=== PATIENT | female | born 1945 | race Caucasian/White ===

== ENCOUNTER 2016-03-13 13:03 | Inpatient (IN) | payer OTHER ==
[~2016-03-13] VITALS: Ht 157.5 cm; Wt 49.0 kg
[~2016-03-13 13:03] MED LIST: ASPIR 8181 M1 PO; GLUCOPHAGE1000 MG PO; LISINOPRIL10 MG PO; LOPRESSOR25 MG PO; VITAMIN D PO
[2016-03-13 13:13] VITALS: BP 137/91
[2016-03-13] MEDS ORDERED: AMOXICILLIN200 MG PO (13:20)
[2016-03-13] MEDS ORDERED: PROTONIX20 MG PO (13:20)
[2016-03-13] MEDS ORDERED: TYLENOL325 M1 PO (13:20)
--- NOTE | 2016-03-13 14:20 | NUR ---
70/F BIB C/O BODYACHES, ABD PAIN, VOMITING, TACTILE FEVER X5DAYS. TYLENOL TAKEN AT 0700. DENIES DIARRHEA; SKIN IS PINK/WARM/DRY; AAOX4 WITH EVEN AND STEADY GAIT; LUNGS CLEAR BL; HR EVEN AND REGULAR; PT DENIES ANY FEVER, CP, SOB, OR COUGH AT THIS TIME; PATIENT STATES PAIN OF 5/10 AT THIS TIME; VSS; PATIENT POSITIONED FOR COMFORT; HOB ELEVATED; BEDRAILS UP X2; BED DOWN. ER MD MADE AWARE OF PT STATUS.
--- NOTE | 2016-03-13 14:28 | NUR ---
AAP PT BEING ASSESS BY DR EMANUEL AT BEDSIDE
[2016-03-13] MEDS ORDERED: NACL 0.9% 1,000 ML IV SCH (14:39)
[2016-03-13] MEDS ORDERED: FAMOTIDINE 20 MG/2 ML VIAL IVP ONE (14:40)
[2016-03-13] MEDS ORDERED: ONDANSETRON 4 MG/2 ML VIAL IVP ONE (14:40)
--- NOTE | 2016-03-13 16:05 | NUR ---
AAO PT AMBULATE TO THE RESTROOM FOR URINE SAMPLE ACCOMPANIED BY
[2016-03-13] MEDS ORDERED: HYDROmorphone 1 MG/ML AMP IVP ONE (16:15)
--- NOTE | 2016-03-13 17:54 | NUR ---
AAO PT TAKEN TO CT BY VINCE TOLEDO VIA PATRICIA
--- NOTE | 2016-03-13 18:25 | NUR ---
Patient will be admitted to care of DR SHAW. Admited to [facility]. Will go to room 124B. Belongings list completed. Report to ROSA M LU.
[2016-03-13 19:57] VITALS: BP 146/90
--- NOTE | 2016-03-13 20:00 | NUR ---
RECEIVED REPORT FROM ROSA M LU. PATIENT WAS ADMITTED TO MED/SURG VIA WHEELCHAIR FROM ER AT 1830 PM WITH DX: PANCREATITIS. INITIAL ASSESSMENT, BODY CHECK AND ADMISSION INTERVENTION DONE. PATIENT AAO X 4, ABLE TO FOLLOW COMMAND AND MAKE NEEDS KNOWN AND AMBULATORY BY SELF WITH STEADY GAIT. NO S/S OF DISTRESS OR SOB NOTED UPON ADMISSION. SKIN WARM/DRY TO TOUCH WITH NORMAL COLOR AND INTACT. PATIENT DENIED OF ANY PAIN/DISCOMFORT AT THIS TIME. INSTRUCTED PATIENT TO UNIT/ENVIRONMENT. ALSO, DISCUSSED PLAN OF CARE, PAIN MANAGEMENT AND MEDICATION REGIMEN WITH PATIENT AND PATIENT VERBALIZED UNDERSTANDING. PLACED PATIENT ON SAFETY PRECAUTIONS AND NPO. WILL CONTINUE TO MONITOR AND CALL LIGHT LEFT WITHIN REACH.
--- NOTE | 2016-03-13 21:02 | NUR ---
NOTIFIED DR. SHAW REGARDING A NEW ADMISSION. AWAITING FOR ORDERS.
[2016-03-13] MEDS ORDERED: ONDANSETRON 4 MG/2 ML VIAL IVP PRN (21:05)
[2016-03-13] MEDS ORDERED: MORPHINE SULFATE 4 MG/ML SYR IVP PRN (21:05)
[2016-03-13] MEDS ORDERED: DEXTROSE 50% 50 ML SYR IVP PRN (21:15)
--- NOTE | 2016-03-13 21:40 | NUR ---
CALLED PHARMACIST REGARDING NEW MEDICATIONS. AWAITING TO VERIFY.
[2016-03-13] MEDS: DEXT 5% /NACL 0.9% 1,000 ML IV SCH (22:39)
[2016-03-13] MEDS: LEVOFLOXACIN 500 MG/D5W PREMIX 100 ML IV SCH (22:39)
--- NOTE | 2016-03-13 22:50 | NUR ---
ADMINISTERED LEVAQUIN AND IVF MD'S ORDERED WITH EDUCATION GIVEN. PATIENT REMAINED IN STABLE CONDITION AND NO ANY COMPLAINT MADE. KEPT PATIENT IN COMFORTABLE POSITION/WARM AND WILL CONTINUE TO MONITOR.
[2016-03-14] VITALS: BP 136/83
--- NOTE | 2016-03-14 00:38 | NUR ---
NO ADVERSE REACTION OF ABX MEDICATION NOTED. V/S REMAINED WNL AND NO ANY C/O PAIN/DISCOMFORT MADE AT THIS TIME. PATIENT STATED THAT SHE WAS HUNGRY. EXPLAINED THE REASONS OF NPO STATUS AND PATIENT VERBALIZED UNDERSTANDING. WILL CONTINUE TO MONITOR.
--- NOTE | 2016-03-14 04:08 | NUR ---
PATIENT SLEEPING QUIETLY IN BED WITH EVEN AND UNLABORED RESPIRATORY RATE. NO CHANGE IN CONDITION NOTED. WILL CONTINUE TO MONITOR.
[2016-03-14] MEDS: DEXT 5% /NACL 0.9% 1,000 ML IV SCH ×3 (05:37→23:45)
[2016-03-14] MEDS: BLOOD GLUCOSE MONITORING 1 DEV DEV FS SCH ×4 (05:48→21:33)
[2016-03-14] MEDS: INSULIN ASPART SLIDING SCALE 100 UNITS/ML VIAL SUBQ PRN ×2 (05:50→17:46)
--- NOTE | 2016-03-14 06:58 | NUR ---
PATIENT RESTED WELL THROUGHOUT THE SHIFT AND REMAINED IN STABLE CONDITION WITHOUT APPARENT DISTRESS NOTED. ENDORSED PLAN OF CARE TO ROSA M WRIGHT, AT BEDSIDE.
--- NOTE | 2016-03-14 06:59 | NUR ---
RECEIVED REPORT FROM ROSA M ROSEN. PT IS SLEEPING BUT EASILY AWAKEN, AAO X4, SKIN INTACT IV ON RIGHT FA PATENT AND INTACT INFUSING FLUID WELL, RIGHT FA 22G FLUSHED PATENT AND INTACT ON SL. INITIAL ASSESSMENT DONE, NO S/S OF RESPIRATORY DISTRESS OR DISCOMFORT NOTED, SAFETY/FALL PRECAUTION ENFORCED, CALL LIGHT WITHIN REACH, WILL CONTINUE TO MONITOR.
[2016-03-14 08:00] VITALS: BP 135/76
[2016-03-14] MEDS: PANTOPRAZOLE 40 MG INJ VIAL IVP SCH (08:23)
[2016-03-14] MEDS: ENOXAPARIN 30 MG/0.3 ML SYR SUBQ SCH (08:32)
[2016-03-14] MEDS: ASPIRIN 81 MG TAB.CHEW PO SCH (08:32)
[2016-03-14] MEDS: METOPROLOL 25 MG TAB PO SCH (08:32)
--- NOTE | 2016-03-14 08:33 | NUR ---
DUE MEDS GIVEN, PT TOLERATED WELL, CALL LIGHT WITHIN REACH, WILL CONTINUE TO MONITOR.
--- NOTE | 2016-03-14 09:23 | NUR ---
PATIENT HAS BEEN SCREENED AND CATEGORIZED MODERATE NUTRITION RISK. PATIENT WILL BE SEEN WITHIN 3-5 DAYS OF ADMISSION. 03/16/16 - 03/18/16 KRISTY OCONNELL; CRISTIAN, RD
--- NOTE | 2016-03-14 11:14 | NUR ---
DR. Whit DUMAS VISITED THE PT.
--- NOTE | 2016-03-14 11:49 | NUR ---
BLOOD SUGAR CHECKED, 169, INSULIN COVERAGE NOT GIVEN, PT WILL REMAIN NPO FOR HIDA SCAN. ALL NEEDS MET AT THIS TIME, NO S/S OF RESPIRATORY DISTRESS OR DISCOMFORT NOTED, CALL LIGHT WITHIN REACH, AT BEDSIDE, WILL CONTINUE TO MONITOR.
[2016-03-14] MEDS: METOCLOPRAMIDE 10 MG/2 ML INJ VIAL IVP SCH ×2 (12:33→16:51)
--- NOTE | 2016-03-14 14:00 | NUR ---
PT IS SLEEPING AT THIS TIME, NO S/S OF RESPIRATORY DISTRESS OR DISCOMFORT NOTED, CALL LIGHT WITHIN REACH, AT BEDSIDE, WILL CONTINUE TO MONITOR.
[2016-03-14 16:00] VITALS: BP 131/71
--- NOTE | 2016-03-14 17:48 | NUR ---
DINNER SERVED, PT HAS GOOD APPETITE, ALL NEEDS MET AT THIS TIME, NO S/S OF RESPIRATORY DISTRESS OR DISCOMFORT NOTED, CALL LIGHT WITHIN REACH, AT BEDSIDE, WILL CONTINUE TO MONITOR.
--- NOTE | 2016-03-14 19:14 | NUR ---
RECEIVED PT FROM ANANYA MEDEROS IN STABLE CONDITION, FOR CONTINUITY OF CARE.
--- NOTE | 2016-03-14 19:15 | NUR ---
ENDORSED REPORT TO ROSA M HAMILTON FOR CONTINUITY OF CARE. PT IS STABLE AT THIS TIME.
--- NOTE | 2016-03-14 20:00 | NUR ---
SHIFT ASSESSMENT DONE. PT A/O X3, NO DISTRESS. DISCUSSED PLAN OF CARE W/ PT, VERBALIZED UNDERSTANDING. PT VITAL SIGNS ARE STABLE, NOTED ON ROOM AIR W/ OXYGEN SATURATION AT 97%, HR 83, BP 155/94, TEMP 99.3F, RR 18 AND DENIES ANY PAIN OR DISCOMFORT. PT DENIES CHEST PAIN, SOB, NAUSEA, AND VOMITING. SKIN IS INTACT, NOTED PT TO HAVE IVF RUNNING WITH IV ACCESS #20G TO RT FA, PATENT AND INTACT. ANOTHER IV ACCESS TO RT FA #22G, SALINE LOCKED, PATENT AND INTACT. SAFETY PRECAUTIONS IMPLEMENTED. CALL LIGHT WITHIN REACH. WILL CONTINUE TO MONITOR PT.
[2016-03-14] MEDS: LEVOFLOXACIN 500 MG/D5W PREMIX 100 ML IV SCH (21:31)
--- NOTE | 2016-03-14 21:33 | NUR ---
PT BLOOD GLUCOSE NOTED AT 162, PT REFUSED INSULIN COVERAGE, ALSO PT IS NPO. REMAINS IN STABLE CONDITION.
--- NOTE | 2016-03-14 23:45 | NUR ---
VITAL SIGNS REMAINS STABLE. NO ACUTE DISTRESS NOTED. WILL CONTINUE TO MONITOR PT.
[2016-03-15] VITALS: BP 149/88
--- NOTE | 2016-03-15 02:22 | NUR ---
PT STABLE, NO ACUTE DISTRESS. WILL CONTINUE TO MONITOR.
[2016-03-15] MEDS: DEXT 5% /NACL 0.9% 1,000 ML IV SCH (03:05)
--- NOTE | 2016-03-15 04:04 | NUR ---
PT RESTING COMFORTABLY, IV ACCESS NOTED PATENT. DENIES PAIN. WILL CONTINUE TO MONITOR.
[2016-03-15] MEDS: INSULIN ASPART SLIDING SCALE 100 UNITS/ML VIAL SUBQ PRN ×2 (05:38→17:42)
[2016-03-15] MEDS: BLOOD GLUCOSE MONITORING 1 DEV DEV FS SCH ×3 (05:39→17:01)
--- NOTE | 2016-03-15 05:41 | NUR ---
PT BLOOD GLUCOSE 196, PT STABLE, ADMINISTERED INSULIN PER MD SLIDING SCALE.
--- NOTE | 2016-03-15 07:05 | NUR ---
ENDORSED PT TO ANANYA RN IN STABLE CONDITION, FOR CONTINUITY OF CARE.
--- NOTE | 2016-03-15 07:06 | NUR ---
RECEIVED REPORT FROM ROSA M HAMILTON. PT IS SLEEPING BUT EASILY AWAKEN, AAO X4, SKIN INTACT, IV ON RIGHT FA PATENT AND INTACT INFUSING FLUID WELL, AND ON RIGHT FA FLUSHED PATENT AND INTACT ON SL, INITIAL ASSESSMENT DONE, NO S/S OF RESPIRATORY DISTRESS OR DISCOMFORT NOTED, DISCUSSED PLAN OF CARE, PT VERBALIZED UNDERSTANDING, SAFETY/FALL PRECAUTION ENFORCED, CALL LIGHT WITHIN REACH, WILL CONTINUE TO MONITOR.
[2016-03-15 08:00] VITALS: BP 155/91
[2016-03-15] MEDS: PANTOPRAZOLE 40 MG INJ VIAL IVP SCH (08:35)
[2016-03-15] MEDS: METOCLOPRAMIDE 10 MG/2 ML INJ VIAL IVP SCH (08:36)
--- NOTE | 2016-03-15 08:40 | NUR ---
DUE MEDS GIVEN, PT TOLERATED WELL, CALL LIGHT WITHIN REACH, WILL CONTINUE TO MONITOR.
[2016-03-15] MEDS: ENOXAPARIN 30 MG/0.3 ML SYR SUBQ SCH (08:44)
[2016-03-15] MEDS: ASPIRIN 81 MG TAB.CHEW PO SCH (08:46)
[2016-03-15] MEDS: METOPROLOL 25 MG TAB PO SCH (08:46)
--- NOTE | 2016-03-15 09:51 | NUR ---
SPOKE TO DR. FARIA, HE STATED THAT AFTER PT'S EGD, IF IT IS OKAY WITH DR. Whit DUMAS FOR PT TO BE DISCHARGE, PT CAN BE DISCHARGED.
--- NOTE | 2016-03-15 10:36 | NUR ---
PER [facility]SPORTATION MANAGER CATIE, REVIEWS SHOULD BE SENT TO BOTH [facility] FAX# [phone] AND [facility] FAX# [phone]. FAXED REVIEW TO [facility] FAX#[phone] PH# [phone] AND [facility] FAX#[phone] PH#JOSE [phone]
--- NOTE | 2016-03-15 12:31 | NUR ---
PT LEFT FOR EGD PROCEDURE, PT STABLE UPON LEAVING.
[2016-03-15] MEDS ORDERED: MIDAZOLAM 2 MG/2 ML VIAL ONE (12:43)
[2016-03-15] MEDS ORDERED: fentaNYL 0.05 MG/ML VIAL ONE (12:43)
--- NOTE | 2016-03-15 13:24 | NUR ---
PT IS BACK FROM EGD PROCEDURE, RECEIVED REPORT FROM ROSA M PETERS FROM OR. VITALS STABLE, MOVED PT TO ROOM 120B, ALL NEEDS MET AT THIS TIME, CALL LIGHT WITHIN REACH, WILL CONTINUE TO MONITOR.
[2016-03-15] MEDS ORDERED: ERTAPENEM SODIUM 1,000 MG in NACL 0.9% 50 ML IV SCH (14:00)
--- NOTE | 2016-03-15 14:27 | NUR ---
FAXED ORDER FOR FOR IV ANTIBIOTIC ERTAPENEM 1G DAILY FOR 10 DAYS TO [facility] FAX# [phone] PH# JOSE [phone]
--- NOTE | 2016-03-15 15:36 | NUR ---
PT IS RESTING COMFORTABLY ON BED TALKING TO AT BEDSIDE, ALL NEEDS MET AT THIS TIME, NO S/S OF RESPIRATORY DISTRESS OR DISCOMFORT NOTED, CALL LIGHT WITHIN REACH, WILL CONTINUE TO MONITOR.
[2016-03-15 16:00] VITALS: BP 118/73
--- NOTE | 2016-03-15 16:25 | NUR ---
SPOKE WITH ALLY BRITO AT 1445 PH# [phone] AND SHE SAID THAT SHE WILL SET UP THE PATIENT'S HOME HEALTH FOR IV ANTIBIOTIC AND WILL FIND OUT IF THE HH WILL NEED A PICC LINE. CALLED BACK ALLY BRITO AT 1545 AND 1615 TO FOLLOW UP ON THE HH AND LEFT HER MESSAGES. NO CALL BACK.
[2016-03-15] MEDS ORDERED: SUCRALFATE 1 GM TAB PO SCH (17:00)
--- NOTE | 2016-03-15 17:54 | NUR ---
SPOKE TO DR. Whit DUMAS REGARDING PT IS OKAY TO BE DISCHARGED, DR. DUMAS STATED THAT PT CAN BE DISCHARGE. WILL CARRY OUT NEW ORDER.
[2016-03-15] MEDS ORDERED: LEVAQUIN500 MG PO (18:03)
--- NOTE | 2016-03-15 18:40 | NUR ---
DISCHARGE INSTRUCTIONS AND PRESCRIPTION GIVEN, PT VERBALIZED UNDERSTANDING, REMOVED ID WRISTBAND, IV IN PLACE FOR HOME HEALTH IV ABX, NOTIFIED ADMITTING, WHEELED PT OUT OF THE UNIT VIA WHEELCHAIR ACCOMPANIED BY , PT STABLE UPON DISCHARGE.
--- NOTE | 2016-03-16 09:09 | NUR ---
SPOKE WITH ALLY HARO OF [facility] PH# [phone] AND SHE SAID THAT THE PATIENT HAS BEEN SET UP WITH HOME HEALTH FOR IV ANTIBIOTIC WITH [facility] PH# [phone] TO START TODAY
== END 2016-03-15 18:40 | disposition home health service (06) | DRG 439 ==
LOC: MED 13:03 → MTU 17:51
PROVIDERS: ADMIT Internal Medicine Pulmonary Disease; ATTEND Internal Medicine Pulmonary Disease
PROC: 0DB68ZX Excision of Stomach, Via Natural or Artificial Opening Endoscopic, Diagnostic (ICD-10-PCS; principal; 2016-03-15 17:30)
DX: K85.90 Acute pancreatitis without necrosis or infection, unspecified (principal); N13.30 Unspecified hydronephrosis; N39.0 Urinary tract infection, site not specified; E44.0 Moderate protein-calorie malnutrition; Z68.1 Body mass index [BMI] 19.9 or less, adult; K21.9 Gastro-esophageal reflux disease without esophagitis; I25.10 Atherosclerotic heart disease of native coronary artery without angina pectoris; K27.7 Chronic peptic ulcer, site unspecified, without hemorrhage or perforation; I10 Essential (primary) hypertension; N81.4 Uterovaginal prolapse, unspecified; K31.84 Gastroparesis; E11.43 Type 2 diabetes mellitus with diabetic autonomic (poly)neuropathy; Z95.1 Presence of aortocoronary bypass graft; Z79.82 Long term (current) use of aspirin; Z79.899 Other long term (current) drug therapy

== ENCOUNTER 2017-05-15 00:40 | Observation (INO) | payer OTHER ==
[~2017-05-15] VITALS: Ht 157.5 cm; Wt 52.6 kg
[~2017-05-15 00:40] MED LIST changes: +ACET-2619 PO; +ASPI81EC98 PO; -ASPIR 8181 M1 PO; -GLUCOPHAGE1000 MG PO; +LEVO500T6 PO; -LISINOPRIL10 MG PO; -LOPRESSOR25 MG PO; +METF1000 PO; +METO25TA PO; +PANT20EC PO; -VITAMIN D PO; +[UNRECOGNIZED DRUG - CODE] PO
[2017-05-15 00:49] VITALS: BP 147/85
--- NOTE | 2017-05-15 01:20 | NUR ---
TO ER BED 10
--- NOTE | 2017-05-15 01:22 | NUR ---
PATIENT IS A 71 Y/O FEMALE WHO PRESENTS TO THE ED C/O ABD PAIN. PT STATES, "IT WAS STARTING TO HURT ABOUT 1 DAY AGO." PT REPORTS 9/10 SHARP UPPER ABD PAIN THAT DOES NOT RADIATE. PT DENIES CP, SOB, REPORTS NAUSEA DENIES VOMITING/DIARRHEA. PT AAOX4, RR EVEN/UNLABORED. PT REPOSITIONED FOR COMFORT, BED IN LOWEST POSITION. ER MD DR. BAUTISTA NOTIFIED. WILL CONTINUE TO MONITOR. Addendum: 05/15/17 at 0213 by MEDDCV PATIENT IS A 71 Y/O FEMALE WHO PRESENTS TO THE ED C/O ABD PAIN. PT STATES, "IT WAS STARTING TO HURT ABOUT 1 DAY AGO." PT REPORTS 9/10 SHARP UPPER ABD PAIN THAT DOES NOT RADIATE. PT DENIES CP, SOB, REPORTS NAUSEA/VOMITING DENIES DIARRHEA. PT AAOX4, RR EVEN/UNLABORED. PT REPOSITIONED FOR COMFORT, BED IN LOWEST POSITION. ER MD DR. BAUTISTA NOTIFIED. WILL CONTINUE TO MONITOR.
[2017-05-15 02:25] LABS: BASOPHILS # (AUTO) 0.1 K/uL (0.00-0.22); BASOPHILS % (AUTO) 1.7 % (0.0-2.0); EOSINOPHILS # (AUTO) 0.1 K/uL (0-0.4); EOSINOPHILS % (AUTO) 0.8 % (0.0-4.0); HEMATOCRIT 42.7 % (36-48); HEMOGLOBIN 14.2 g/dL (12.0-16.0); LYMPHOCYTES # (AUTO) 1.6 K/uL (2.5-16.5); LYMPHOCYTES % (AUTO) 23.5 % (20.5-51.1); MEAN CORPUSCULAR HEMOGLOBIN 28 pg (27-31); MEAN CORPUSCULAR HGB CONC 33 g/dL (33-37); MEAN CORPUSCULAR VOLUME 83 fL (80-94); MONOCYTES # (AUTO) 0.6 K/uL (0.8-1.0); MONOCYTES % (AUTO) 9.5 % (1.7-9.3); NEUTROPHILS # (AUTO) 4.4 K/uL (1.8-7.7); NEUTROPHILS % (AUTO) 64.5 % (42.2-75.2); PLATELET COUNT (AUTO) 231 K/uL (140-450); RED BLOOD CELL COUNT(AUTO) 5.12 MIL/uL (4.20-5.40); RED CELL DISTRIBUTION WIDTH 13.8 % (11.6-13.7); WHITE BLOOD COUNT (AUTO) 6.8 K/uL (4.8-10.8)
[2017-05-15] MEDS ORDERED: NACL 0.9% 1,000 ML IV ONE ×2 (02:35→03:15)
[2017-05-15] MEDS ORDERED: ONDANSETRON 4 MG/2 ML VIAL IVP ONE (02:35)
[2017-05-15 02:47] LABS: ANION GAP 13.9 (8-16); CARBON DIOXIDE 29.2 mmol/L (21-32); CHLORIDE 100 mmol/L (98-107); GLUCOSE 183 mg/dL (74-106); POTASSIUM 4.1 mmol/L (3.5-5.1); SODIUM SERUM 139 mmol/L (136-145); UREA NITROGEN, BLOOD 26 mg/dL (7-18)
[2017-05-15 03:01] LABS: ALBUMIN 3.7 g/dL (3.4-5.0); AMYLASE 102 U/L (25-115); ASPARTATE AMINOTRANSFERASE 12 U/L (15-37); LIPASE 775 U/L (73-393); TOTAL BILIRUBIN 0.4 mg/dL (0.0-1.0)
[2017-05-15] MEDS ORDERED: MORPHINE SULFATE 4 MG/ML SYR IVP ONE (03:30)
--- NOTE | 2017-05-15 03:30 | NUR ---
CALLED COCKTAIL WAITRESS FOR CT SCAN, NO ANSWER
--- NOTE | 2017-05-15 03:52 | NUR ---
CALLED CURTAIN FELLER BLINDSTITCH FOR CT, SPOKE WITH LINETTE, SHE WILL PROP MAKING SUPERVISOR PATIENT FOR CT
[2017-05-15 04:28] LABS: APPEARANCE,URINE SL CLOUDY (CLEAR); BILIRUBIN,URINE NEGATIVE (NEGATIVE); BLOOD, URINE 1+ (NEGATIVE); COLOR,URINE YELLOW (YELLOW); LEUKOCYTE ESTERASE ,URINE TRACE (NEGATIVE); NITRITE, URINE NEGATIVE (NEGATIVE); PH,URINE 6.5 (5.0-9.0); UGLUCOSE TRACE (NEGATIVE)
--- NOTE | 2017-05-15 04:30 | NUR ---
PATIENT RESTING AT THIS TIME. NO SIGNS OF DISTRESS.
[2017-05-15 04:39] LABS: RBC,URINE 0-5 (RARE) /HPF (0-5); WBC,URINE 0-5 (RARE) /HPF (0-5)
--- NOTE | 2017-05-15 05:30 | NUR ---
PATIENT RESTING AT THIS TIME. NO SIGNS OF DISTRESS.
[2017-05-15] MEDS ORDERED: ACET-2619 PO (06:04)
[2017-05-15] MEDS ORDERED: GLIP5TAB4 PO (06:04)
--- NOTE | 2017-05-15 06:05 | NUR ---
Patient will be admitted to care of DR. CANTU. Admitted to M/S. Will go to room 113. Belongings list completed. Report to STAR MEDEROS.
--- NOTE | 2017-05-15 06:14 | NUR ---
RECEIVED FROM ER PER WHEELCHAIR ACCOMPANIED BY SPOUSE. AWAKE AND ALERT. NO SOB. DENIES PAIN AT THIS TIME. CALL LIGHT WITH IN REACH. ORIENTED TO ROOM AND, RAPID RESPONSE USE . IVF SITE TO RAC#20. SKIN INTACT AND DX. OF PANCREATITIS. NO EDEMA NOTED. CTAB.
[2017-05-15 06:27] VITALS: BP 125/62
--- NOTE | 2017-05-15 07:15 | NUR ---
RECEIVED REPORT FROM SPEED RUNNER RN. PATIENT IS AAOX4, NO SIGNS AND SYMPTOMS OF ACUTE DISTRESS NOTED AT THIS TIME. HAS IV TO RIGHT AC 20G, ON SALINE LOCK AT THIS TIME. PATIENT DENIES ANY PAIN. DISCUSSED PLAN OF CARE WITH PATIENT AND SHE VERBALIZED UNDERSTANDING. BED IN LOWEST POSITION, SIDE RAILS UP X2, CALL LIGHT PLACED WITHIN REACH. WILL CONTINUE TO MONITOR.
[2017-05-15 08:00] VITALS: BP 138/75
[2017-05-15] MEDS ORDERED: HYDROcodone/APAP 5/325 MG 1 TAB TAB PO PRN (10:00)
[2017-05-15] MEDS ORDERED: MORPHINE SULFATE 2 MG/ML SYR IVP PRN (10:00)
[2017-05-15] MEDS ORDERED: ONDANSETRON 4 MG/2 ML VIAL IVP PRN (10:00)
[2017-05-15] MEDS ORDERED: ACETAMINOPHEN 325 MG TAB PO PRN (10:00)
[2017-05-15] MEDS: NACL 0.9% 1,000 ML IV SCH ×2 (10:00→23:39)
[2017-05-15] MEDS ORDERED: INSULIN LISPRO SLIDING SCALE 100 UNITS/ML VIAL SUBQ PRN (10:05)
[2017-05-15] MEDS ORDERED: DEXTROSE 50% 50 ML SYR IVP PRN (10:05)
[2017-05-15] MEDS ORDERED: hydrALAZINE 20 MG/ML VIAL IVP PRN (10:10)
--- NOTE | 2017-05-15 10:18 | NUR ---
PATIENT HAS BEEN SCREENED AND CATEGORIZED MODERATE NUTRITION RISK. PATIENT WILL BE SEEN WITHIN 3-5 DAYS OF ADMISSION. 05/17/17-05/19/[address]
[2017-05-15] MEDS: BLOOD GLUCOSE MONITORING 1 DEV DEV FS SCH ×3 (11:47→21:00)
--- NOTE | 2017-05-15 14:21 | NUR ---
FAXED INITIAL REVIEW TO [facility] [phone] PHONE [phone] FAXED INITIAL REVIEW TO [facility] [phone] [place] [phone]
[2017-05-15 14:30] LABS: CHOL/HDL RATIO 3.8 (1-4.5)
--- NOTE | 2017-05-15 14:50 | NUR ---
CALLED DR CANTU WITH RESULT OF PATIENTS LIPASE BEING 201 (TRENDING DOWN), ORDERED FOR PATIENT TO BE ON A CLEAR LIQUID DIET.
[2017-05-15 16:00] VITALS: BP 142/64
--- NOTE | 2017-05-15 19:30 | NUR ---
ASSUMED CARE OF PATIENT, NO COMPLAINS. NO DISTRESS. CALL LIGHT WITHIN REACH.
--- NOTE | 2017-05-15 19:30 | NUR ---
ENDORSED PATIENT TO COKE DRAWER RN FOR CONTINUITY OF CARE. PATIENT IN STABLE CONDITION.
--- NOTE | 2017-05-15 20:00 | NUR ---
PLAN OF CARE DISCUSSED WITH PATIENT, VERBALIZED UNDERSTANDING WELL. CALL LIGHT WITHIN REACH.
[2017-05-16 00:01] VITALS: BP 137/77
--- NOTE | 2017-05-16 00:02 | NUR ---
NO COMPLAINS. VITAL SIGNS STABLE. SLEEPING WELL, EASILY AROUSABLE. CALL LIGHT WITHIN REACH.
--- NOTE | 2017-05-16 04:43 | NUR ---
AWAKE, NO COMPLAINS. VITAL SIGNS STABLE. CALL LIGHT WITHIN REACH.
[2017-05-16] MEDS: BLOOD GLUCOSE MONITORING 1 DEV DEV FS SCH (06:02)
--- NOTE | 2017-05-16 07:10 | NUR ---
ENDORSED CARE AT BEDSIDE WITH STUBBS RN, PATIENT IN STABLE CONDITION.
--- NOTE | 2017-05-16 07:11 | NUR ---
RECEIVED REPORT FROM ECOLOGY PROFESSOR RN. PATIENT IS AAOX4, NO SIGNS AND SYMPTOMS OF ACUTE DISTRESS NOTED AT THIS TIME. HAS IV TO RIGHT AC 20G, HAS NS INFUSING AT 75 ML/HR. INFUSING WELL. SITE IS CLEAN, DRY, PATENT AND INTACT. PATIENT DENIES ANY PAIN. DISCUSSED PLAN OF CARE WITH PATIENT AND SHE VERBALIZED UNDERSTANDING. BED IN LOWEST POSITION, SIDE RAILS UP X2, CALL LIGHT PLACED WITHIN REACH. WILL CONTINUE TO MONITOR.
[2017-05-16 07:29] LABS: BASOPHILS # (AUTO) 0.1 K/uL (0.00-0.22); BASOPHILS % (AUTO) 1.6 % (0.0-2.0); EOSINOPHILS # (AUTO) 0.1 K/uL (0-0.4); EOSINOPHILS % (AUTO) 1.1 % (0.0-4.0); HEMATOCRIT 38.1 % (36-48); HEMOGLOBIN 12.3 g/dL (12.0-16.0); LYMPHOCYTES # (AUTO) 2.5 K/uL (2.5-16.5); LYMPHOCYTES % (AUTO) 35.9 % (20.5-51.1); MEAN CORPUSCULAR HEMOGLOBIN 27 pg (27-31); MEAN CORPUSCULAR HGB CONC 32 g/dL (33-37); MEAN CORPUSCULAR VOLUME 83 fL (80-94); MONOCYTES # (AUTO) 0.7 K/uL (0.8-1.0); NEUTROPHILS # (AUTO) 3.5 K/uL (1.8-7.7); NEUTROPHILS % (AUTO) 51.4 % (42.2-75.2); PLATELET COUNT (AUTO) 194 K/uL (140-450); RED BLOOD CELL COUNT(AUTO) 4.58 MIL/uL (4.20-5.40); RED CELL DISTRIBUTION WIDTH 13.6 % (11.6-13.7); WHITE BLOOD COUNT (AUTO) 6.9 K/uL (4.8-10.8)
[2017-05-16 08:04] LABS: ALBUMIN 2.8 g/dL (3.4-5.0); ANION GAP 11.5 (8-16); ASPARTATE AMINOTRANSFERASE 14 U/L (15-37); CHLORIDE 106 mmol/L (98-107); CREATININE 0.8 mg/dL (0.6-1.3); GLUCOSE 106 mg/dL (74-106); MAGNESIUM 1.8 mg/dL (1.8-2.4); POTASSIUM 3.5 mmol/L (3.5-5.1); SODIUM SERUM 140 mmol/L (136-145); TOTAL BILIRUBIN 0.4 mg/dL (0.0-1.0); UREA NITROGEN, BLOOD 9 mg/dL (7-18)
[2017-05-16 08:27] VITALS: BP 144/78
[2017-05-16] MEDS ORDERED: PANTOPRAZOLE 40 MG INJ VIAL IVP SCH (09:00)
[2017-05-16] MEDS ORDERED: ENOXAPARIN 30 MG/0.3 ML SYR SUBQ SCH (09:00)
--- NOTE | 2017-05-16 11:58 | NUR ---
CALLED YOLANDA FROM [facility], AND INFORMED HER THAT PATIENT IS BEING DISCHARGED. SHE SAID TO JUST FAX THE DISCHARGE SUMMARY TO HER, WHICH I DID [phone]. CALLED [facility] AND LEFT MESSAGE THAT THIS PATIENT IS BEING DISCHARGED, . FAXED DC SUMMARY TO [facility] AT [phone].
--- NOTE | 2017-05-16 12:20 | NUR ---
DISCHARGE ORDER IS IN PLACE. GAVE PATIENT INSTRUCTIONS TO FOLLOW UP WITH PRIMARY CARE PHYSICIAN, AND TO EAT A SOFT BLAND DIET FOR A WEEK. INSTRUCTED HER TO SEEK EMERGENCY MEDICAL ATTENTION IF S/S WORSEN. PATIENT VERBALIZED UNDERSTANDING. STOPPED IV FLUIDS AT THIS TIME. REMOVED IV FROM SITE, CATHETER IS INTACT. SITE IS CLEAN AND DRY. PATIENT HAS NO SIGNS AND SYMPTOMS OF ACUTE DISTRESS NOTED AT THIS TIME. WILL WHEEL PATIENT OUT ON WHEELCHAIR.
== END 2017-05-16 12:20 | disposition home or self-care (01) ==
LOC: MED 00:40 → MTU 05:45 → INTOOBSV 05:45
PROVIDERS: ADMIT Hospitalist; ATTEND Hospitalist
DX: K85.90 Acute pancreatitis without necrosis or infection, unspecified (principal); E44.1 Mild protein-calorie malnutrition; I10 Essential (primary) hypertension; E11.9 Type 2 diabetes mellitus without complications; I25.10 Atherosclerotic heart disease of native coronary artery without angina pectoris; K21.9 Gastro-esophageal reflux disease without esophagitis; Z95.5 Presence of coronary angioplasty implant and graft; Z79.899 Other long term (current) drug therapy
CPT/HCPCS: 36415; 74176; 80053; 80061; 81001; 82150; 82550; 82948; 83605; 83690; 83735; 84484; 85025; 87040; 87081; 96361; 96372; 96374; 96375; 99285; C9113; G0378; J1650; J1815; J2270; J2405; J7030

== ENCOUNTER 2017-06-12 23:20 | Emergency (ER) | payer OTHER ==
[~2017-06-12] VITALS: Ht 157.5 cm; Wt 51.7 kg
[~2017-06-12 23:20] MED LIST changes: +GLIP5TAB4 PO; -LEVO500T6 PO; -METF1000 PO; -PANT20EC PO; -[UNRECOGNIZED DRUG - CODE] PO
[2017-06-12 23:24] VITALS: BP 161/98
[2017-06-13] MEDS ORDERED: VANCOMYCIN 1,000 MG in DEXTROSE 5% 250 ML IV ONE (01:20)
[2017-06-13] MEDS ORDERED: PIPERACILLIN/TAZOBACTAM 3.375 GM in DEXTROSE 5% 50 ML IV ONE (01:20)
[2017-06-13 01:38] LABS: HEMATOCRIT 41.5 % (36-48); HEMOGLOBIN 13.8 g/dL (12.0-16.0); LYMPHOCYTES # (AUTO) 2.4 K/uL (2.5-16.5); MEAN CORPUSCULAR HEMOGLOBIN 28 pg (27-31); MEAN CORPUSCULAR HGB CONC 33 g/dL (33-37); MEAN CORPUSCULAR VOLUME 83.9 fL (80-94); MONOCYTES # (AUTO) 0.6 K/uL (0.8-1.0); NEUTROPHILS # (AUTO) 7.9 K/uL (1.8-7.7); PLATELET COUNT (AUTO) 257 K/uL (140-450); RED BLOOD CELL COUNT(AUTO) 4.94 MIL/uL (4.20-5.40); RED CELL DISTRIBUTION WIDTH 14.2 % (11.6-13.7)
[2017-06-13 01:43] LABS: LYMPHOCYTES % (AUTO) 21.7 % (20.5-51.1); MONOCYTES % (AUTO) 5.6 % (1.7-9.3); NEUTROPHILS % (AUTO) 71.9 % (42.2-75.2)
[2017-06-13 01:44] LABS: BASOPHILS % (AUTO) 0.5 % (0.0-2.0); EOSINOPHILS % (AUTO) 0.3 % (0.0-4.0)
[2017-06-13 01:45] LABS: PROTHROMBIN TIME 10.2 secs (10.8-13.4)
[2017-06-13] MEDS ORDERED: PIPERACILLIN/TAZOBACTAM 3.375 GM VIAL IV ONE (01:48)
[2017-06-13 01:55] LABS: ANION GAP 18.5 (8-16); CARBON DIOXIDE 22.4 mmol/L (21-32); CHLORIDE 105 mmol/L (98-107); CREATININE 1.1 mg/dL (0.6-1.3); GLUCOSE 281 mg/dL (74-106); POTASSIUM 3.9 mmol/L (3.5-5.1); SODIUM SERUM 142 mmol/L (136-145); UREA NITROGEN, BLOOD 20 mg/dL (7-18)
[2017-06-13] MEDS ORDERED: NACL 0.9% 500 ML IV ONE (02:00)
[2017-06-13] MEDS ORDERED: NACL 0.9% 1,000 ML IV ONE (02:00)
[2017-06-13 02:01] LABS: ALBUMIN 3.6 g/dL (3.4-5.0); ASPARTATE AMINOTRANSFERASE 24 U/L (15-37); TOTAL BILIRUBIN 0.3 mg/dL (0.0-1.0)
[2017-06-13] MEDS ORDERED: VANCOMYCIN 1,000 MG VIAL ONE (03:03)
[2017-06-13 06:20] VITALS: BP 137/77
== END 2017-06-13 06:18 | disposition short-term general hospital (02) ==
LOC: MED 23:20
DX: Z48.01 Encounter for change or removal of surgical wound dressing (principal); H60.11 Cellulitis of right external ear; A41.9 Sepsis, unspecified organism; E11.9 Type 2 diabetes mellitus without complications; I10 Essential (primary) hypertension; Z79.84 Long term (current) use of oral hypoglycemic drugs; Z79.82 Long term (current) use of aspirin; Z79.899 Other long term (current) drug therapy
CPT/HCPCS: 36415; 80053; 82948; 83605; 85025; 85610; 87040; 96365; 96366; 96367; 99285; J2543; J3370

== ENCOUNTER 2018-08-30 12:16 | Emergency (ER) | payer OTHER ==
[~2018-08-30] VITALS: Ht 157.5 cm; Wt 49.0 kg
[2018-08-30 12:25] VITALS: BP 129/76
--- NOTE | 2018-08-30 12:34 | NUR ---
PT AMBULATED TO ER BED 04
--- NOTE | 2018-08-30 12:36 | NUR ---
BIB FAMILY c/o n/v/d & intermitent epigastric pain & burning urination x 3 days. went to PCP YESTERDAY & GOT MACROBID FOR UTI. FBS =130 TODAY.MED HX: DM. PATIENT STATES PAIN OF 7/10 AT THIS TIME; VSS; PATIENT POSITIONED FOR COMFORT; HOB ELEVATED; BEDRAILS UP X1; BED DOWN. ER MD MADE AWARE OF PT STATUS.
[2018-08-30] MEDS ORDERED: NACL 0.9% 1,000 ML IV SCH (12:43)
--- NOTE | 2018-08-30 12:44 | NUR ---
Patient being evaluated by DR ALFREDO at bedside.
[2018-08-30] MEDS ORDERED: ONDANSETRON 4 MG/2 ML VIAL IVP ONE (12:45)
--- NOTE | 2018-08-30 13:04 | NUR ---
PT TAKEN TO CT VIA [place], ACCOMPANIED BY BOILER CONTROL TECHNICIAN.
[2018-08-30 13:12] LABS: BASOPHILS # (AUTO) 0.1 K/uL (0.00-0.22); BASOPHILS % (AUTO) 0.9 % (0.0-2.0); EOSINOPHILS % (AUTO) 0.2 % (0.0-4.0); HEMOGLOBIN 14.4 g/dL (12.0-16.0); LYMPHOCYTES # (AUTO) 2.5 K/uL (2.5-16.5); LYMPHOCYTES % (AUTO) 25.8 % (20.5-51.1); MEAN CORPUSCULAR HEMOGLOBIN 28 pg (27-31); MEAN CORPUSCULAR HGB CONC 33 g/dL (33-37); MEAN CORPUSCULAR VOLUME 84.5 fL (80-94); MONOCYTES % (AUTO) 10.1 % (1.7-9.3); NEUTROPHILS # (AUTO) 6.2 K/uL (1.8-7.7); PLATELET COUNT (AUTO) 268 K/uL (140-450); RED CELL DISTRIBUTION WIDTH 14.7 % (11.6-13.7); WHITE BLOOD COUNT (AUTO) 9.8 K/uL (4.8-10.8)
[2018-08-30 13:28] LABS: ALBUMIN 3.7 g/dL (3.4-5.0); ASPARTATE AMINOTRANSFERASE 10 U/L (15-37); CARBON DIOXIDE 24.8 mmol/L (21-32); CHLORIDE 101 mmol/L (98-107); CREATININE 1.2 mg/dL (0.6-1.3); GLUCOSE 140 mg/dL (74-106); LIPASE 327 U/L (73-393); POTASSIUM 4.8 mmol/L (3.5-5.1); SODIUM SERUM 137 mmol/L (136-145); TOTAL BILIRUBIN 0.5 mg/dL (0.0-1.0); UREA NITROGEN, BLOOD 22 mg/dL (7-18)
[2018-08-30 13:37] LABS: APPEARANCE,URINE SL CLOUDY (CLEAR); BILIRUBIN,URINE NEGATIVE (NEGATIVE); BLOOD, URINE 3+ (NEGATIVE); COLOR,URINE YELLOW (YELLOW); LEUKOCYTE ESTERASE ,URINE 2+ (NEGATIVE); NITRITE, URINE NEGATIVE (NEGATIVE); UGLUCOSE 3+ (NEGATIVE)
[2018-08-30 13:48] LABS: WBC,URINE 80-100 /HPF (0-5)
[2018-08-30 13:49] LABS: YEAST,URINE Few /HPF (None Seen)
[2018-08-30] MEDS ORDERED: cefTRIAXone 1,000 MG VIAL ONE (14:29)
[2018-08-30 15:07] VITALS: BP 127/63
--- NOTE | 2018-08-30 15:07 | NUR ---
Patient discharged with v/s stable. Written and verbal after care instructions given and explained. Patient alert, oriented and verbalized understanding of instructions. Ambulatory with steady gait. All questions addressed prior to discharge. ID band removed. Patient advised to follow up with PMD. Rx of KEFLEX & ZOFRAN given. Patient educated on indication of medication including possible reaction and side effects. Opportunity to ask questions provided and answered.
== END 2018-08-30 15:07 | disposition home or self-care (01) ==
LOC: MED 12:16
DX: R10.13 Epigastric pain (principal); R11.2 Nausea with vomiting, unspecified; R19.7 Diarrhea, unspecified; R30.0 Dysuria; E11.9 Type 2 diabetes mellitus without complications; I10 Essential (primary) hypertension; Z79.82 Long term (current) use of aspirin; Z79.899 Other long term (current) drug therapy
CPT/HCPCS: 36415; 74176; 80053; 81001; 83690; 85025; 87086; 87186; 96361; 96365; 96375; 99284; J0696; J2405; J7030

== ENCOUNTER 2018-11-01 09:04 | Emergency (ER) | payer OTHER ==
[~2018-11-01] VITALS: Ht 152.4 cm; Wt 45.1 kg
[2018-11-01 09:15] VITALS: BP 132/88
--- NOTE | 2018-11-01 10:15 | NUR ---
Patient ambulated to bed 5
[2018-11-01 10:39] LABS: BASOPHILS % (AUTO) 0.1 % (0.0-2.0); HEMOGLOBIN 13.8 g/dL (12.0-16.0); LYMPHOCYTES # (AUTO) 1.4 K/uL (2.5-16.5); LYMPHOCYTES % (AUTO) 13.8 % (20.5-51.1); MEAN CORPUSCULAR HEMOGLOBIN 28 pg (27-31); MEAN CORPUSCULAR HGB CONC 33 g/dL (33-37); MEAN CORPUSCULAR VOLUME 84.1 fL (80-94); MONOCYTES # (AUTO) 0.4 K/uL (0.8-1.0); MONOCYTES % (AUTO) 4.5 % (1.7-9.3); NEUTROPHILS # (AUTO) 8.2 K/uL (1.8-7.7); NEUTROPHILS % (AUTO) 81.6 % (42.2-75.2); PLATELET COUNT (AUTO) 347 K/uL (140-450); RED CELL DISTRIBUTION WIDTH 15.2 % (11.6-13.7); WHITE BLOOD COUNT (AUTO) 10.1 K/uL (4.8-10.8)
--- NOTE | 2018-11-01 10:49 | NUR ---
PT BEING TAKEN TO CT.
[2018-11-01 10:55] LABS: APPEARANCE,URINE SL CLOUDY (CLEAR); BILIRUBIN,URINE NEGATIVE (NEGATIVE); BLOOD, URINE 1+ (NEGATIVE); COLOR,URINE YELLOW (YELLOW); LEUKOCYTE ESTERASE ,URINE NEGATIVE (NEGATIVE); NITRITE, URINE NEGATIVE (NEGATIVE); UGLUCOSE 2+ (NEGATIVE)
[2018-11-01 11:03] LABS: ANION GAP 18.1 (8-16); CARBON DIOXIDE 21.9 mmol/L (21-32); CHLORIDE 101 mmol/L (98-107); CREATININE 0.9 mg/dL (0.6-1.3); GLUCOSE 149 mg/dL (74-106); SODIUM SERUM 137 mmol/L (136-145); UREA NITROGEN, BLOOD 34 mg/dL (7-18)
[2018-11-01 11:09] LABS: ALBUMIN 3.1 g/dL (3.4-5.0); ASPARTATE AMINOTRANSFERASE 12 U/L (15-37); TOTAL BILIRUBIN 0.9 mg/dL (0.0-1.0)
[2018-11-01] MEDS ORDERED: NACL 0.9% 1,000 ML IV ONE (11:30)
--- NOTE | 2018-11-01 13:10 | NUR ---
June bain in [facility] - 11/01/18 at 1322 by EDGARD RECEIVED REPORT FROM ROSA M SMYTH, PT IN BED RESTING, IN STABLE CONDITION AT THIS TIME.
--- NOTE | 2018-11-01 13:10 | NUR ---
RECEIVED REPORT FROM ROSA M SMYTH. PT IN BED RESTING IN STABLE CONDITION, WILL CONTINUE TO MONITOR CLOSELY.
--- NOTE | 2018-11-01 13:27 | NUR ---
IMAGING DEPT, PROVIDED ORAL CONTRAST TO PT AT THIS TIME.
[2018-11-01] MEDS ORDERED: ONDANSETRON 4 MG/2 ML VIAL IVP ONE (13:40)
--- NOTE | 2018-11-01 15:21 | NUR ---
PT TAKEN TO CT VIA PATRICIA
--- NOTE | 2018-11-01 15:33 | NUR ---
PT BACK FROM CT
[2018-11-01] MEDS ORDERED: MORPHINE SULFATE 4 MG/ML SYR IVP ONE (15:35)
--- NOTE | 2018-11-01 15:36 | NUR ---
PT C/O ABDOMINAL PAIN [address] ALFREDO MADE AWARE.
--- NOTE | 2018-11-01 16:02 | NUR ---
PT MOVED TO BED 2.
--- NOTE | 2018-11-01 16:10 | NUR ---
RECEIVED REPORT FROM ROSA M HOLMAN; WILL RESUME CARE AT THIS TIME.
[2018-11-01] MEDS ORDERED: METF1000 PO (16:38)
[2018-11-01] MEDS ORDERED: LISI10TA11 PO (16:38)
[2018-11-01] MEDS ORDERED: CANA100T PO (16:38)
[2018-11-01] MEDS ORDERED: METO25TA PO (16:38)
[2018-11-01] MEDS ORDERED: ASPI-1718 PO (16:38)
--- NOTE | 2018-11-01 16:45 | NUR ---
PT RESTING IN BED. VITAL SIGNS STABLE. PT STATES PAIN IS 5/10 AT THIS TIME.
--- NOTE | 2018-11-01 17:39 | NUR ---
spoke with Dr Medellin, Surgeon; Received ordered to cancelled order for NGT insertion, Dr Payan informed.
--- NOTE | 2018-11-01 18:45 | NUR ---
PT RESTING COMFORTABLY IN BED; VITAL SIGNS STABLE. PT STATES PAIN IS 4/10 AT THIS TIME. ALL NEEDS ATTENDED TO. WILL CONTINUE TO MONITOR.
--- NOTE | 2018-11-01 19:24 | NUR ---
Patient to be transferred to [facility]. Receiving facility has accepting physician and available space. ER physician has signed transfer form. Report given to ROSA M Major.
--- NOTE | 2018-11-01 19:27 | NUR ---
BEDSIDE REPORT RECIEVED FROM ROSA M CAT. ASSUMED CARE AT THIS TIME.
--- NOTE | 2018-11-01 19:27 | NUR ---
report given to ROSA M hayward; transfer of care at this time.
--- NOTE | 2018-11-01 19:45 | NUR ---
PT AWAKE AND ALERT. LYING FLAT IN BED. VSS. ALL NEEDS MET AT THIS TIME. WILL CONTINUE TO MONITOR.
--- NOTE | 2018-11-01 19:45 | NUR ---
SPOKE WITH ROWAN DUMONT @ [facility]. POINT OF CONTACT @ [facility] [place] [phone], AWAITING TRANSPORTATION SETUP.
--- NOTE | 2018-11-01 21:02 | NUR ---
SPOKE WITH TIM AT [facility], PT ETA IS 45 MINUTES.
--- NOTE | 2018-11-01 21:20 | NUR ---
[facility] AT BEDSIDE TO TRANSPORT PT. REPORT GIVEN TO
--- NOTE | 2018-11-01 21:30 | NUR ---
Patient to be transferred to [facility]. Is being transferred due insurance request. Receiving facility has accepting physician and available space. ER physician has signed transfer form. Patient or responsible alliance party has agreed to transfer and signed form. Patient belongings inventoried and will be sent with patient. Copy of nursing notes, lab reports, EKG, Physicians Orders and X-rays to be sent with patient. Report called to ROSA M Major at receiving facility.
[2018-11-01 21:32] VITALS: BP 125/79
== END 2018-11-01 21:32 | disposition short-term general hospital (02) ==
LOC: MED 09:04
DX: K46.0 Unspecified abdominal hernia with obstruction, without gangrene (principal); E86.0 Dehydration; E11.9 Type 2 diabetes mellitus without complications; I10 Essential (primary) hypertension; Z95.1 Presence of aortocoronary bypass graft; Z79.82 Long term (current) use of aspirin; Z79.84 Long term (current) use of oral hypoglycemic drugs; Z79.899 Other long term (current) drug therapy
CPT/HCPCS: 36415; 74176; 80053; 81001; 85025; 87086; 96361; 96374; 96375; 99285; J2270; J2405; J7030

== ENCOUNTER 2021-07-01 08:26 | Emergency (ER) | payer OTHER ==
[~2021-07-01] VITALS: Ht 157.5 cm; Wt 47.6 kg
[~2021-07-01 08:26] MED LIST changes: -ACET-2619 PO; +ASPI-1822 PO; -ASPI81EC98 PO; +CANA100T PO; -GLIP5TAB4 PO; +LISI-486 PO; +METF1000 PO
[2021-07-01 08:27] VITALS: BP 182/95
--- NOTE | 2021-07-01 08:33 | NUR ---
PATIENT AMBULATED TO BED 2
[2021-07-01] MEDS ORDERED: ASPIRIN 81 MG TAB.CHEW PO ONE (08:35)
--- NOTE | 2021-07-01 08:43 | NUR ---
ERMD DR DURÁN AT BEDSIDE FOR EVAL
--- NOTE | 2021-07-01 08:45 | NUR ---
DR JOHN AT BEDSIDE.
--- NOTE | 2021-07-01 08:59 | NUR ---
X-RAY AT BEDSIDE.
[2021-07-01 09:12] LABS: BASOPHILS # (AUTO) 0.1 K/uL (0.00-0.22); BASOPHILS % (AUTO) 0.9 % (0.0-2.0); EOSINOPHILS # (AUTO) 0.1 K/uL (0-0.4); EOSINOPHILS % (AUTO) 1.7 % (0.0-4.0); HEMATOCRIT 42.8 % (36-48); HEMOGLOBIN 14.4 g/dL (12.0-16.0); LYMPHOCYTES # (AUTO) 2.4 K/uL (2.5-16.5); LYMPHOCYTES % (AUTO) 39.5 % (20.5-51.1); MEAN CORPUSCULAR HEMOGLOBIN 28 pg (27-31); MEAN CORPUSCULAR HGB CONC 34 g/dL (33-37); MEAN CORPUSCULAR VOLUME 83.6 fL (80-94); MONOCYTES # (AUTO) 0.4 K/uL (0.8-1.0); MONOCYTES % (AUTO) 7.2 % (1.7-9.3); NEUTROPHILS # (AUTO) 3.1 K/uL (1.8-7.7); NEUTROPHILS % (AUTO) 50.7 % (42.2-75.2); PLATELET COUNT (AUTO) 260 K/uL (140-450); RED BLOOD CELL COUNT(AUTO) 5.12 MIL/uL (4.20-5.40); RED CELL DISTRIBUTION WIDTH 14.2 % (11.6-13.7); WHITE BLOOD COUNT (AUTO) 6.1 K/uL (4.8-10.8)
--- NOTE | 2021-07-01 09:27 | NUR ---
75/F BIB SELF WITH C/O INTERMITTENT CHEST PAIN X3 DAYS AND SOB X1 WEEK. C/O N/V. NO CHILLS, NO FEVER DENIES TAKING MEDICATION. MEDHX: HTN, DM, TRIPLE BYPASS IN 2004 ALLERGIES: NKA
--- NOTE | 2021-07-01 09:29 | NUR ---
LAB AT BEDSIDE.
[2021-07-01 10:02] LABS: ALBUMIN 3.6 g/dL (3.4-5.0); ANION GAP 9.8 (8-16); ASPARTATE AMINOTRANSFERASE 15 U/L (15-37); CHLORIDE 104 mmol/L (98-107); GLUCOSE 126 mg/dL (74-106); POTASSIUM 4.8 mmol/L (3.5-5.1); SODIUM SERUM 140 mmol/L (136-145); TOTAL BILIRUBIN 0.6 mg/dL (0.0-1.0); UREA NITROGEN, BLOOD 16 mg/dL (7-18)
[2021-07-01] MEDS ORDERED: CIPR500T4 PO (10:51)
[2021-07-01] MEDS ORDERED: IBUP-2213 PO (10:51)
[2021-07-01 12:56] VITALS: BP 126/67
--- NOTE | 2021-07-01 12:57 | NUR ---
Patient discharged with v/s stable. Written and verbal after care instructions given and explained. Patient alert, oriented and verbalized understanding of instructions. Ambulatory with steady gait. All questions addressed prior to discharge. ID band removed. Patient advised to follow up with PMD. Rx of CIPROFLOXACIN HCI, IBUPROFEN given.Opportunity to ask questions provided and answered.
--- NOTE | 2021-07-01 12:58 | NUR ---
Chart checked and completed. The patient's care was reviewed and supervised by Renetta Toth RN.
== END 2021-07-01 12:56 | disposition home or self-care (01) ==
LOC: MED 08:26
DX: R07.89 Other chest pain (principal); N39.0 Urinary tract infection, site not specified; R11.2 Nausea with vomiting, unspecified; R06.02 Shortness of breath; E11.9 Type 2 diabetes mellitus without complications; I10 Essential (primary) hypertension; Z79.899 Other long term (current) drug therapy; Z95.1 Presence of aortocoronary bypass graft; Z79.82 Long term (current) use of aspirin
CPT/HCPCS: 36415; 71045; 80053; 81002; 83880; 84484; 85025; 93005; 99285; Q0092

== ENCOUNTER 2022-03-16 15:32 | Emergency (ER) | payer OTHER ==
[~2022-03-16] VITALS: Ht 152.4 cm; Wt 44.5 kg
[~2022-03-16 15:32] MED LIST changes: +CIPR500T4 PO; +IBUP-2213 PO; +METF-1274 PO; -METF1000 PO
[2022-03-16 15:48] VITALS: BP 217/107
--- NOTE | 2022-03-16 15:50 | NUR ---
PT AMBULATED TO BED 12
--- NOTE | 2022-03-16 16:00 | NUR ---
76 y/o F BIB self from home c/o high blood pressure readings and dizziness x 1 day. Per patient, BP normally controlled in the 130's. Patient states dizziness/lightheadedness began today while at home. Patient states elevated readings in the 200's prior to ER arrival. Patient denies headache, blurry vision, chest pain, SOB, cough, weakness, fatigue. Denies sick household members; compliant with BP medications. PMH: HTN, DM2 Meds: lopressor, lisinopril, metformin 500mg BID NKDA Sx: triple bypass (2004), urethera implant
--- NOTE | 2022-03-16 16:00 | NUR ---
Dr. Santa evaluating patient at bedside
--- NOTE | 2022-03-16 16:04 | NUR ---
Pt ambulated to restroom for urine collection.
--- NOTE | 2022-03-16 16:04 | NUR ---
Blood work collected, handed to CPT Nicolasa at ER bedside
[2022-03-16] MEDS ORDERED: METOPROLOL 25 MG TAB PO ONE (16:05)
[2022-03-16 16:06] LABS: BASOPHILS % (AUTO) 0.7 % (0.0-2.0); EOSINOPHILS # (AUTO) 0.1 K/uL (0-0.4); EOSINOPHILS % (AUTO) 0.9 % (0.0-4.0); HEMATOCRIT 40.7 % (36-48); HEMOGLOBIN 13.6 g/dL (12.0-16.0); LYMPHOCYTES # (AUTO) 3.1 K/uL (2.5-16.5); LYMPHOCYTES % (AUTO) 46.4 % (20.5-51.1); MEAN CORPUSCULAR HEMOGLOBIN 28 pg (27-31); MEAN CORPUSCULAR HGB CONC 33 g/dL (33-37); MEAN CORPUSCULAR VOLUME 84.3 fL (80-94); MONOCYTES # (AUTO) 0.7 K/uL (0.8-1.0); MONOCYTES % (AUTO) 9.9 % (1.7-9.3); NEUTROPHILS # (AUTO) 2.8 K/uL (1.8-7.7); NEUTROPHILS % (AUTO) 42.1 % (42.2-75.2); PLATELET COUNT (AUTO) 249 K/uL (140-450); RED BLOOD CELL COUNT(AUTO) 4.83 MIL/uL (4.20-5.40); WHITE BLOOD COUNT (AUTO) 6.7 K/uL (4.8-10.8)
--- NOTE | 2022-03-16 16:08 | NUR ---
Pt to CT via W/C
--- NOTE | 2022-03-16 16:18 | NUR ---
Patient returned from CT via WC and placed back onto cardiac monitor technician.
[2022-03-16 16:26] LABS: ALBUMIN 3.1 g/dL (3.4-5.0); ANION GAP 11.2 (8-16); ASPARTATE AMINOTRANSFERASE 18 U/L (15-37); CARBON DIOXIDE 29.6 mmol/L (21-32); CHLORIDE 104 mmol/L (98-107); CREATININE 0.8 mg/dL (0.6-1.3); GLUCOSE 96 mg/dL (74-106); POTASSIUM 3.8 mmol/L (3.5-5.1); SODIUM SERUM 141 mmol/L (136-145); TOTAL BILIRUBIN 0.3 mg/dL (0.0-1.0); UREA NITROGEN, BLOOD 14 mg/dL (7-18)
[2022-03-16 16:37] LABS: APPEARANCE,URINE CLEAR (CLEAR); BILIRUBIN,URINE NEGATIVE (NEGATIVE); BLOOD, URINE TRACE-I (NEGATIVE); COLOR,URINE YELLOW (YELLOW); LEUKOCYTE ESTERASE ,URINE 2+ (NEGATIVE); NITRITE, URINE NEGATIVE (NEGATIVE); UGLUCOSE NEGATIVE (NEGATIVE)
[2022-03-16 16:52] LABS: WBC,URINE 16-25 (MOD) /HPF (0-5)
--- NOTE | 2022-03-16 16:53 | NUR ---
Covid marilyn and flu swabs collected, walked to lab and handed to CPT.
[2022-03-16 17:16] LABS: LIPASE 337 U/L (73-393)
[2022-03-16] MEDS ORDERED: NITR100C7 PO (18:01)
[2022-03-16] MEDS ORDERED: NIRM1TAB PO (18:02)
[2022-03-16 18:43] VITALS: BP 160/89
--- NOTE | 2022-03-16 18:55 | NUR ---
Patient discharged with v/s stable. Written and verbal after care instructions given and explained for COVID-19: How to Protect Yourself and Others. Patient alert, oriented and verbalized understanding of instructions. Ambulatory with steady gait. All questions addressed prior to discharge. ID band removed. Patient advised to follow up with PMD. Rx of Macrobid, Paxlovid given. Patient educated on indication of medication including possible reaction and side effects. Opportunity to ask questions provided and answered. Copies of CT, urinalysis, COVID/influenza results, blood work given to patient.
== END 2022-03-16 18:55 | disposition home or self-care (01) ==
LOC: MED 15:32
DX: I10 Essential (primary) hypertension (principal); Z20.822 Contact with and (suspected) exposure to COVID-19; E11.9 Type 2 diabetes mellitus without complications; I25.10 Atherosclerotic heart disease of native coronary artery without angina pectoris; Z79.4 Long term (current) use of insulin; Z79.899 Other long term (current) drug therapy
CPT/HCPCS: 36415; 70450; 80053; 81001; 83690; 83880; 84484; 85025; 87086; 93005; 99285

== ENCOUNTER 2022-06-24 10:13 | Emergency (ER) | payer OTHER ==
[~2022-06-24] VITALS: Ht 152.4 cm; Wt 45.8 kg
[~2022-06-24 10:13] MED LIST changes: +NIRM1TAB PO; +NITR100C7 PO
[2022-06-24 10:30] VITALS: BP 165/87
[2022-06-24] MEDS ORDERED: CEPH-588 PO (12:37)
[2022-06-24] MEDS ORDERED: ACET-9882 PO (12:37)
--- NOTE | 2022-06-24 14:29 | NUR ---
LEFT WITHOUT AFTER CARE INSTRUCTIONS
== END 2022-06-24 14:29 | disposition home or self-care (01) ==
LOC: MED 10:13
DX: H60.11 Cellulitis of right external ear (principal); E11.9 Type 2 diabetes mellitus without complications; I10 Essential (primary) hypertension; Z98.890 Other specified postprocedural states; Z79.899 Other long term (current) drug therapy; Z79.2 Long term (current) use of antibiotics; Z79.82 Long term (current) use of aspirin
CPT/HCPCS: 99283

== ENCOUNTER 2022-07-18 08:42 | Emergency (ER) | payer OTHER ==
[~2022-07-18] VITALS: Ht 152.4 cm; Wt 46.3 kg
[~2022-07-18 08:42] MED LIST changes: +ACET-9882 PO; +CEPH-588 PO
[2022-07-18 08:50] VITALS: BP 160/90
[2022-07-18] MEDS ORDERED: CEPH-588 PO (09:10)
[2022-07-18] MEDS ORDERED: ACET-2619 PO (09:10)
[2022-07-18 09:16] VITALS: BP 160/90
== END 2022-07-18 09:16 | disposition home or self-care (01) ==
LOC: MED 08:42
DX: H60.11 Cellulitis of right external ear (principal); L98.8 Other specified disorders of the skin and subcutaneous tissue; E11.9 Type 2 diabetes mellitus without complications; I10 Essential (primary) hypertension; Z79.899 Other long term (current) drug therapy
CPT/HCPCS: 99282

== ENCOUNTER 2022-07-21 13:31 | Emergency (ER) | payer OTHER ==
[~2022-07-21] VITALS: Ht 162.6 cm; Wt 46.7 kg
[~2022-07-21 13:31] MED LIST changes: +ACET-2619 PO
[2022-07-21 13:47] VITALS: BP 151/81
[2022-07-21] MEDS ORDERED: AMOX1TAB8 PO (16:03)
[2022-07-21 16:17] VITALS: BP 152/69
--- NOTE | 2022-07-21 16:17 | NUR ---
Patient discharged with v/s stable. Written and verbal after care instructions given. Patient alert, oriented and verbalized understanding of instructions. Ambulatory with steady gait. All questions addressed prior to discharge. ID band removed. Patient advised to follow up with PMD. Rx of Amox-Clav 875-125mg Tablet given. Opportunity to ask questions provided and answered.
== END 2022-07-21 16:17 | disposition home or self-care (01) ==
LOC: MED 13:31
DX: H60.11 Cellulitis of right external ear (principal); E11.9 Type 2 diabetes mellitus without complications; I10 Essential (primary) hypertension; I25.10 Atherosclerotic heart disease of native coronary artery without angina pectoris; Z95.1 Presence of aortocoronary bypass graft; Z79.899 Other long term (current) drug therapy; Z79.2 Long term (current) use of antibiotics; Z79.1 Long term (current) use of non-steroidal anti-inflammatories (NSAID); Z79.82 Long term (current) use of aspirin
CPT/HCPCS: 70450; 99284

== ENCOUNTER 2023-01-09 14:52 | Emergency (ER) | payer OTHER ==
[~2023-01-09] VITALS: Ht 157.5 cm; Wt 45.4 kg
[~2023-01-09 14:52] MED LIST changes: +AMOX1TAB8 PO
[2023-01-09 15:02] VITALS: BP 151/74; PULSE 85; RESP 20; TEMP 97.7; O2SAT 99
[2023-01-09 16:06] LABS: APPEARANCE,URINE CLEAR (CLEAR); BILIRUBIN,URINE NEGATIVE (NEGATIVE); BLOOD, URINE TRACE-I (NEGATIVE); COLOR,URINE YELLOW (YELLOW); LEUKOCYTE ESTERASE ,URINE 2+ (NEGATIVE); NITRITE, URINE NEGATIVE (NEGATIVE); PROTEIN,URINE NEGATIVE (NEGATIVE); UGLUCOSE NEGATIVE (NEGATIVE); UROBILINOGEN,URINE 0.2 EU/dL (0.2 - 1)
[2023-01-09 16:09] LABS: BACTERIA,URINE FEW /HPF (None Seen); RBC,URINE 0-5 /HPF (0-5)
[2023-01-09 16:10] LABS: SQUAMOUS EPITHELIAL CELL,UR 4-10 (MOD) /LPF (0-3 (FEW))
[2023-01-09 16:16] LABS: BASOPHILS # (AUTO) 0.1 K/uL (0.00-0.22); BASOPHILS % (AUTO) 0.5 % (0.0-2.0); EOSINOPHILS # (AUTO) 0.1 K/uL (0-0.4); EOSINOPHILS % (AUTO) 0.5 % (0.0-4.0); HEMOGLOBIN 13.4 g/dL (12.0-16.0); LYMPHOCYTES # (AUTO) 2.7 K/uL (2.5-16.5); LYMPHOCYTES % (AUTO) 20.5 % (20.5-51.1); MEAN CORPUSCULAR HEMOGLOBIN 28 pg (27-31); MEAN CORPUSCULAR HGB CONC 33 g/dL (33-37); MEAN CORPUSCULAR VOLUME 84.8 fL (80-94); MONOCYTES # (AUTO) 1.1 K/uL (0.8-1.0); MONOCYTES % (AUTO) 8.1 % (1.7-9.3); NEUTROPHILS # (AUTO) 9.4 K/uL (1.8-7.7); NEUTROPHILS % (AUTO) 70.4 % (42.2-75.2); PLATELET COUNT (AUTO) 293 K/uL (140-450); RED BLOOD CELL COUNT(AUTO) 4.83 MIL/uL (4.20-5.40); RED CELL DISTRIBUTION WIDTH 14.5 % (11.6-13.7); WHITE BLOOD COUNT (AUTO) 13.3 K/uL (4.8-10.8)
[2023-01-09 16:26] LABS: FLU A ANTIGEN negative (NEGATIVE); FLU B ANTIGEN NEGATIVE (NEGATIVE)
[2023-01-09 16:27] LABS: ALANINE AMINOTRANSFERASE 15 U/L (12-78); ALBUMIN 3.4 g/dL (3.4-5.0); ALKALINE PHOSPHATASE 74 U/L (50-136); ANION GAP 13.4 (8-16); ASPARTATE AMINOTRANSFERASE 12 U/L (15-37); CALCIUM 9.3 mg/dL (8.5-10.1); CHLORIDE 98 mmol/L (98-107); CREATININE 0.9 mg/dL (0.6-1.3); GLUCOSE 115 mg/dL (74-106); POTASSIUM 4.4 mmol/L (3.5-5.1); SODIUM SERUM 137 mmol/L (136-145); TOTAL BILIRUBIN 0.6 mg/dL (0.0-1.0); TOTAL PROTEIN, SERUM 8.3 g/dL (6.4-8.2); UREA NITROGEN, BLOOD 18 mg/dL (7-18)
[2023-01-09] MEDS ORDERED: IBUP-1842 PO (18:56)
[2023-01-09] MEDS ORDERED: CIPR500T4 PO (18:56)
[2023-01-09] MEDS ORDERED: ONDA8TAB87 PO (18:56)
[2023-01-09 19:04] VITALS: BP 144/70; PULSE 78; RESP 20; TEMP 97.7; O2SAT 99
== END 2023-01-09 19:04 | disposition home or self-care (01) ==
LOC: MED 14:52
DX: N39.0 Urinary tract infection, site not specified (principal); Z20.822 Contact with and (suspected) exposure to COVID-19; I11.9 Hypertensive heart disease without heart failure; E11.9 Type 2 diabetes mellitus without complications; Z79.4 Long term (current) use of insulin; Z79.899 Other long term (current) drug therapy
CPT/HCPCS: 36415; 71045; 80053; 81001; 83880; 84484; 85025; 87086; 93005; 99285